=== PATIENT | male | born 2000 | race Caucasian/White ===

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

== ENCOUNTER 2021-03-06 21:46 | Observation (INO) | payer OTHER, SELFPAY ==
[~2021-03-06] VITALS: Ht 185.4 cm; Wt 118.8 kg
[2021-03-06 22:02] VITALS: BP 117/85
--- NOTE | 2021-03-06 22:09 | NUR ---
PATIENT AMBUALTED TO BED 3 WITH STEADY GAIT.
[2021-03-06] MEDS ORDERED: ACETAMINOPHEN EXTRA STRENGTH 500 MG TAB PO ONE (22:15)
[2021-03-06] MEDS ORDERED: ACETAMINOPHEN EXTRA STRENGTH 500 MG TAB ONE (22:15)
--- NOTE | 2021-03-06 22:15 | NUR ---
PATIENT BIB SELF FOR C/O DIARRHEA SINCE LAST TUESDAY S/P EATING CHIPOTLE. PATIENT STATES CHILLS, FATIGUE, AND SORE THROAT. +SWELLING AND RDNESS ON BILAT TONSILS. NO EXCUDATE NOTED ON TONSILS. AIRWAY PATENT AND CLEAR. SPEECH IS CLEAR. +BODY ACHES, FEVERS, AND CHILLS. DENIES ANY VOMITING. EQUAL CHEST RISE AND FALL. NO RESP DSITRESS NTOED. LUNG SOUNDS ARE DECREASED AND DIMINSHED ALL THROUGHOUT. PT SAYS HES BEEN HAVING DIARRHEA EPISDOES ON AND OFF WITH SOME SOLID FORM STOOL. DENIES ANY BLOOD IN THE STOOL. +DECREASE APPETITE. PT IS ABLE TO HOLD LIQUIES ADN FOOD DOWN. LAST INTAKE IS NOW. ABD IS ROUND, SOFT, NONTENDER TO TOUCH, WITH HYPOACTIVE BS. STEADY GAIT NOTED. NKDA. PMH: DENIES.
--- NOTE | 2021-03-06 22:20 | NUR ---
COOLING MEASURES INITATED.
--- NOTE | 2021-03-06 22:34 | NUR ---
UA SAMPLE, LABS, BLOOD CULTURES, AND LARS SWAB COLLECTED AND GIVEN TO [place] CLOTH REELER.
[2021-03-06] MEDS ORDERED: NACL 0.9% 1,000 ML IV ONE (22:35)
--- NOTE | 2021-03-06 22:42 | NUR ---
PT SATING AT 89% RA. PT PLACED ON 3L NC. SPO2 IS NOW 95%
[2021-03-06] MEDS ORDERED: cefTRIAXone 2,000 MG in DEXTROSE 5% 100 ML IV ONE (22:45)
[2021-03-06] MEDS ORDERED: AZITHROMYCIN 250 MG TAB PO ONE (22:45)
--- NOTE | 2021-03-06 22:46 | NUR ---
XR AT BEDSIDE.
[2021-03-06 22:48] LABS: BASOPHILS % (AUTO) 0.2 % (0.0-2.0); HEMATOCRIT 47.2 % (36-52); HEMOGLOBIN 15.8 g/dL (12.0-18.0); LYMPHOCYTES # (AUTO) 0.7 K/uL (2.0-11.5); LYMPHOCYTES % (AUTO) 14.9 % (20.5-51.1); MEAN CORPUSCULAR HEMOGLOBIN 30 pg (27-31); MEAN CORPUSCULAR HGB CONC 34 g/dL (33-37); MEAN CORPUSCULAR VOLUME 88.1 fL (80-94); MONOCYTES # (AUTO) 0.4 K/uL (0.8-1.0); MONOCYTES % (AUTO) 8.2 % (1.7-9.3); NEUTROPHILS # (AUTO) 3.7 K/uL (1.8-7.7); NEUTROPHILS % (AUTO) 76.7 % (42.2-75.2); PLATELET COUNT (AUTO) 141 K/uL (140-450); RED BLOOD CELL COUNT(AUTO) 5.36 MIL/uL (4.20-6.10); RED CELL DISTRIBUTION WIDTH 13.7 % (11.6-13.7); WHITE BLOOD COUNT (AUTO) 4.9 K/uL (4.8-10.8)
[2021-03-06 22:49] LABS: APPEARANCE,URINE CLEAR (CLEAR); BILIRUBIN,URINE 1+ (NEGATIVE); BLOOD, URINE NEGATIVE (NEGATIVE); COLOR,URINE YELLOW (YELLOW); LEUKOCYTE ESTERASE ,URINE NEGATIVE (NEGATIVE); NITRITE, URINE NEGATIVE (NEGATIVE); PH,URINE 5.5 (5.0-9.0); UGLUCOSE NEGATIVE (NEGATIVE)
[2021-03-06] MEDS ORDERED: cefTRIAXone 2,000 MG VIAL ONE (22:50)
[2021-03-06 23:05] LABS: ALBUMIN 3.9 g/dL (3.4-5.0); ANION GAP 10.9 (8-16); CARBON DIOXIDE 27.5 mmol/L (21-32); CREATININE 1.3 mg/dL (0.6-1.3); POTASSIUM 3.4 mmol/L (3.5-5.1); TOTAL BILIRUBIN 0.7 mg/dL (0.0-1.0)
[2021-03-06 23:17] LABS: PROTHROMBIN TIME 10.1 secs (10.8-13.4)
[2021-03-06 23:21] LABS: RBC,URINE 0-5 /HPF (0-5); WBC,URINE 0-5 /HPF (0-5)
--- NOTE | 2021-03-06 23:47 | NUR ---
GEOD PTS TEMP. 102.3 F ORAL. GISSELL MADE AWARE.
[2021-03-06] MEDS ORDERED: KETOROLAC 30 MG/ML VIAL IVP ONE (23:55)
--- NOTE | 2021-03-07 00:12 | NUR ---
TITRATED O2 DOWN TO 1L NC. PT SPO2 IS 98%.
--- NOTE | 2021-03-07 00:50 | NUR ---
ERMD AT BEDSIDE EVALUTING PT.
--- NOTE | 2021-03-07 00:50 | NUR ---
REMOVED O2. SPO2 IS 97% RA.
--- NOTE | 2021-03-07 01:00 | NUR ---
NOVAL COVID SWAB COLLECTED AND SENT TO LAB.
--- NOTE | 2021-03-07 01:10 | NUR ---
2ND EKG BEIGN PERFORMED BY CAPRICE KEANE.
[2021-03-07] MEDS ORDERED: NACL 0.9% 1,000 ML IV SCH (03:20)
[2021-03-07] MEDS ORDERED: ACETAMINOPHEN 325 MG TAB PO PRN (03:20)
[2021-03-07] MEDS ORDERED: MORPHINE SULFATE 2 MG/ML SYR IVP PRN (03:20)
[2021-03-07] MEDS ORDERED: ONDANSETRON 4 MG/2 ML VIAL IVP PRN (03:20)
--- NOTE | 2021-03-07 03:34 | NUR ---
Patient will be admitted to care of DR. FLANAGAN. Admited to TELE. Will go to room 114. Belongings list completed. Report to PATTIE CASTRO.
--- NOTE | 2021-03-07 03:46 | NUR ---
REPORT GIVEN BY ASSEMBLY CLEANER , 21 Y/O MALE PT AAOX4 WITH THE CC: OF DIARRHEA ON AND OFF X9 DAYS, DX: PNA. NO DISTRESS NOTED. RESPIRATION REGULAR AND NON LABORED, ON TELE MONITORING. LUNGS CLEAR ON AUSCULTATION, BOWEL SOUNDS IN ALL 4 QUADRANT. MRSA SCREENING DONE. IVF OF NS INFUSING WELL ON RAC 20G. NO EPISODE OF DIARRHEA AT THIS TIME. LARS NEGATIVE. NO KNOWN ALLERGY. V/S: 119/63, 83, 98, 18, 98.2.
--- NOTE | 2021-03-07 07:30 | NUR ---
ENDORSED TO AM SHIFT RN FOR CONTINUITY OF CARE IN STABLE CONDITION.
--- NOTE | 2021-03-07 07:32 | NUR ---
RECEIVED REPORT FROM BUREAU CHIEF NURSE FOR CONTINUITY OF CARE. PT IS AAOX4, ABLE TO MAKE NEEDS KNOWN. RESPIRATIONS EVEN AND UNLABORED. ON ROOM AIR AND NO S/S OF RESPIRATORY DISTRESS NOTED. SKIN IS WARM AND DRY. IV SITE ON RAC 20 G INFUSING FLUIDS WELL. INTACT AND PATENT. DENIES PAIN AT THIS MOMENT AND NO EPISODES OF DIARRHEA AT THIS TIME. PLAN OF CARE DISCUSSED. SAFETY PRECAUTIONS IN PLACE. BED IN LOW POSITION. CALL LIGHT WITHIN REACH. WILL CONTINUE TO MONITOR
[2021-03-07] MEDS: ALBUTEROL 0.083% 2.5 MG/3 ML NEBU INH SCH ×2 (07:44→12:54)
[2021-03-07 08:00] VITALS: BP 128/71
--- NOTE | 2021-03-07 09:00 | NUR ---
NO SCHEDULED MEDS TO BE GIVEN. PT SHOWING NO SIGNS OF DISTRESS. WILL CONTINUE TO MONITOR.
--- NOTE | 2021-03-07 10:45 | NUR ---
CHECKED ON PATIENT. PATIENT IS STABLE. NO DISTRESS NOTED. WILL CONTINUE TO MONITOR.
[2021-03-07 12:00] VITALS: BP 140/78
[2021-03-07] MEDS ORDERED: AMOX-1000 PO (12:33)
--- NOTE | 2021-03-07 12:35 | NUR ---
NEW DISCHARGE ORDERS RECEIVED. WILL NOTIFY PATIENT REGARDING DISCHARGE ORDERS.
[2021-03-07 13:43] VITALS: BP 140/78
--- NOTE | 2021-03-07 14:26 | NUR ---
PATIENT DISCHARGED OFF THE UNIT. PATIENT PARKED CAR AT THE ER. PATIENT WAS STABLE PRIOR TO DISCHARGE.
[2021-03-07] MEDS ORDERED: AZITHROMYCIN 500 MG in DEXTROSE 5% 250 ML IV SCH (23:30)
== END 2021-03-07 14:20 | disposition home or self-care (01) ==
LOC: MED 21:46 → MTU 03-07 03:24
PROVIDERS: ADMIT Hospitalist; ATTEND Hospitalist
DX: J18.9 Pneumonia, unspecified organism (principal); Z20.822 Contact with and (suspected) exposure to COVID-19; R19.7 Diarrhea, unspecified; J96.01 Acute respiratory failure with hypoxia; R94.31 Abnormal electrocardiogram [ECG] [EKG]
CPT/HCPCS: 36415; 71045; 80053; 81001; 82550; 83605; 83880; 84484; 85025; 85610; 85730; 87040; 87081; 87086; 87426; 93005; 94640; 94760; 96361; 96365; 96375; 99285; G0378; J0696; J1885; J7030; J7613; U0003; J0456; J7060